=== PATIENT | female | born 1960 | race Caucasian/White ===

== ENCOUNTER → 2018-03-09 | Outpatient (CLI) | payer BC | LOC: MC.RAD 09:40 | DX: Z12.31 Encounter for screening mammogram for malignant neoplasm of breast (principal) ==

== ENCOUNTER 2018-04-03 12:00 | Day surgery (SDC) | payer BC ==
[~2018-04-03] VITALS: Ht 167.6 cm; Wt 73.0 kg
[2018-04-03] MEDS ORDERED: ADVIL200 MG PO (12:35)
[2018-04-03 12:39] VITALS: BP 132/72; PULSE 75; TEMP 98.1
[2018-04-03 13:45] VITALS: BP 127/73; PULSE 80
[2018-04-03] MEDS ORDERED: COLACE 100100 MG/CAP PO (16:31)
[2018-04-03] MEDS ORDERED: MOTRIN 600600 MG/TAB PO (16:31)
[2018-04-03 16:45] VITALS: BP 113/66; PULSE 78
[2018-04-03 17:00] VITALS: BP 114/67; PULSE 80
== END 2018-04-03 17:30 | disposition home or self-care (01) ==
LOC: SDCO 12:00
DX: D17.1 Benign lipomatous neoplasm of skin and subcutaneous tissue of trunk (principal); M19.90 Unspecified osteoarthritis, unspecified site; Z80.0 Family history of malignant neoplasm of digestive organs; Z83.3 Family history of diabetes mellitus; Z82.3 Family history of stroke
CPT/HCPCS: J0690; J2250; J2405; J2704; J3010; J7120